=== PATIENT | female | born 1990 | race Caucasian/White ===

== ENCOUNTER 2023-07-05 21:36 | Inpatient (IN) | payer BC ==
[2023-07-05 22:30] VITALS: BMI 25.7
[2023-07-05 22:54] LABS: Fetal Membranes Rupture No Membranes Rupture (No Rupture)
[2023-07-05] MEDS ORDERED: Acetaminophen 500 MG TAB PO PRN (23:06)
[2023-07-05] MEDS ORDERED: Ondansetron PF 4 MG/2 ML Vial IVP PRN (23:06)
[2023-07-05] MEDS ORDERED: fentaNYL 50 mcg/mL 1 mL Vial SLOW IVP PRN (23:06)
[2023-07-05] MEDS ORDERED: Methylergonovine 0.2 MG/ML VIAL IM PRN (23:06)
[2023-07-05] MEDS ORDERED: hydrALAZINE 20 MG/ML VIAL SLOW IVP PRN (23:06)
[2023-07-05] MEDS ORDERED: Promethazine HCl 25 MG/ML VIAL IM PRN (23:06)
[2023-07-05] MEDS ORDERED: Carboprost 250 MCG/ML AMP IM PRN (23:06)
[2023-07-05] MEDS ORDERED: Diphenoxylate HCl/Atropine Tablet PO PRN ×2 (23:06)
[2023-07-05] MEDS ORDERED: Tranexamic Acid 1,000 MG/10 ML VIAL IVP PRN (23:06)
[2023-07-05] MEDS ORDERED: Misoprostol 200 MCG TAB PR PRN (23:06)
[2023-07-05] MEDS ORDERED: Lactated Ringer's 1,000 ML IV SCH (23:15)
[2023-07-05] MEDS ORDERED: Betamet Acet/Betamet Na Ph 30 MG/5 ML VIAL IM SCH (23:15)
[2023-07-05] MEDS ORDERED: Oxytocin 30 units/NS 500 ML 500 ML IV SCH (23:15)
[2023-07-06 00:31] LABS: #Basophils 0.1 10x3/uL (0.0-0.2); #Eosinphils 0.2 10x3/uL (0.0-0.5); #Monocytes 0.9 10x3/uL (0.0-1.1); #Neutrophils 7.1 10x3/uL (1.5-8.4); %Basophils 0.6 % (0.0-2.0); %Eosinophils 2.2 % (0.0-6.0); %Lymphocytes 23.7 % (18.0-47.0); %Monocytes 7.9 % (0.0-10.0); %Neutrophils 64.6 % (40.0-75.0); Hematocrit 31.9 % (34.9-44.5); Hemoglobin 11.1 g/dL (12.0-15.5); Mean Corpuscular HGB CONC 34.8 g/dL (32.0-36.0); Mean Corpuscular Hemoglobin 29.5 pg (27.0-33.0); Mean Corpuscular Volume 84.8 fl (81.6-98.3); Mean Platelet Volume 9.2 fl (7.4-10.4); Platelet Count 254 10x3/uL (150-450); Red Blood Cell (RBC) Count 3.76 10x6/uL (3.90-5.03)
[2023-07-06 01:18] LABS: Bilirubin Neg (Negative); Blood, Urine Negative (Negative); Clarity Clear (Clear); Glucose, Urine (Dipstick) Normal (Negative); Ketone, Urine Negative (Negative); Leukocyte Negative (Negative); Nitrite Negative (Negative); Protein, Urine (Dipstick) Negative (Neg-Trace); Urobilinogen Normal mg/dL (Less than 2); pH, Urine 6.5 (5.0-9.0)
[2023-07-06 01:32] LABS: Bacteria/HPF None Seen HPF (None Seen); CAUTI Indications for Culture Pregnancy; RBC/HPF None Seen HPF (0-3); Squamous Epithelial None Seen HPF (0-3); WBC/HPF None Seen HPF (0-3)
[2023-07-06 01:34] LABS: Urine Culture Reflex Yes Yes
[2023-07-06] MEDS ORDERED: metroNIDAZOLE 500 MG TAB PO SCH (09:00)
[2023-07-07 12:14] LABS: Group B Streptococcus by PCR Not Detected (NotDetected)
== END 2023-07-06 08:30 | disposition home health service (06) | DRG 833 ==
LOC: CSHLD/OP 21:36 → CSHLD 23:38
PROVIDERS: ADMIT Obstetrics & Gynecology; ATTEND Obstetrics & Gynecology
DX: O60.03 Preterm labor without delivery, third trimester (principal); Z3A.32 32 weeks gestation of pregnancy; Z88.1 Allergy status to other antibiotic agents; Z79.899 Other long term (current) drug therapy
CPT/HCPCS: 81001; 84112; 85025; 87086; 87480; 87510; 87653; 87660; 99285; J0702